=== PATIENT | male | born 1955 | race Caucasian/White ===

== ENCOUNTER 2018-06-07 06:14 | Emergency (ER) | payer OTHER ==
[~2018-06-07] VITALS: Ht 188 cm; Wt 90.7 kg
[2018-06-07] MEDS ORDERED: SKELAXIN800 MG PO (08:11)
[2018-06-07] MEDS ORDERED: KETO10TA2 PO (08:11)
[2018-06-07] MEDS ORDERED: MEDROLPACK PO (08:11)
== END 2018-06-07 08:21 | disposition home or self-care (01) ==
LOC: ER 06:14
DX: M13.861 Other specified arthritis, right knee (principal); M13.811 Other specified arthritis, right shoulder; M13.862 Other specified arthritis, left knee; M25.562 Pain in left knee; M25.561 Pain in right knee; M25.512 Pain in left shoulder; M25.511 Pain in right shoulder

== ENCOUNTER 2019-08-05 07:45 | Emergency (ER) | payer OTHER ==
[~2019-08-05] VITALS: Ht 190.5 cm; Wt 97.5 kg
[~2019-08-05 07:45] MED LIST: KETO10TA2 PO; MEDROLPACK PO; SKELAXIN800 MG PO
[2019-08-05] MEDS ORDERED: METHOTREXATE2.5 MG (08:20)
[2019-08-05] MEDS ORDERED: HUMIRA40 MG/0.2 SQ (08:21)
[2019-08-05] MEDS ORDERED: DICLOFENAC SOD100 MG PO (08:21)
[2019-08-05] MEDS ORDERED: STIOLTO RESPIMAT4 GM IH (08:22)
[2019-08-05] MEDS ORDERED: MONTELUKAST SODI4 M1 PO (08:22)
[2019-08-05] MEDS ORDERED: SINGULAIR 10MG10 MG (09:29)
== END 2019-08-05 13:44 | disposition home or self-care (01) ==
LOC: ER 07:45
DX: R07.89 Other chest pain (principal); M54.6 Pain in thoracic spine

== ENCOUNTER 2019-09-21 09:31 | Emergency (ER) | payer OTHER ==
[~2019-09-21] VITALS: Ht 190.5 cm; Wt 97.5 kg
[~2019-09-21 09:31] MED LIST changes: +DICLOFENAC SOD100 MG PO; +HUMIRA40 MG/0.2 SQ; +METHOTREXATE2.5 MG; +MONTELUKAST SODI4 M1 PO; +SINGULAIR 10MG10 MG; +STIOLTO RESPIMAT4 GM IH
== END 2019-09-21 15:18 | disposition home or self-care (01) ==
LOC: ER 09:31
DX: M06.862 Other specified rheumatoid arthritis, left knee (principal); M06.861 Other specified rheumatoid arthritis, right knee

== ENCOUNTER 2021-04-30 22:53 | Emergency (ER) | payer OTHER ==
[~2021-04-30] VITALS: Ht 188 cm; Wt 88.5 kg
[2021-05-01] MEDS ORDERED: PEPCID40 MG PO (06:04)
[2021-05-01] MEDS ORDERED: ZOFRAN4 MG PO (06:04)
[2021-05-01] MEDS ORDERED: NASAL MIST126 ML NASAL (06:05)
[2021-05-01] MEDS ORDERED: CIPRO500 MG PO (06:05)
== END 2021-05-01 06:33 | disposition home or self-care (01) ==
LOC: ER 22:53
DX: R10.84 Generalized abdominal pain (principal)

== ENCOUNTER 2021-05-07 05:59 | Emergency (ER) | payer OTHER ==
[~2021-05-07] VITALS: Ht 188 cm; Wt 88.5 kg
[~2021-05-07 05:59] MED LIST changes: +CIPRO500 MG PO; +NASAL MIST126 ML NASAL; +PEPCID40 MG PO; +ZOFRAN4 MG PO
[2021-05-07] MEDS ORDERED: ENBREL50 MG/1 M1 (06:09)
[2021-05-07] MEDS ORDERED: CEPHALEXIN500 MG PO (13:14)
[2021-05-07] MEDS ORDERED: TRAMADOL HCL50 MG PO (13:14)
[2021-05-07] MEDS ORDERED: TAMS0.4C PO (13:14)
== END 2021-05-07 13:23 | disposition home or self-care (01) ==
LOC: ER 05:59
DX: N20.0 Calculus of kidney (principal)